=== PATIENT | female | born 1990 | race Caucasian/White ===

== ENCOUNTER 2017-04-18 13:18 | Emergency (ER) | payer SELFPAY ==
[2017-04-18 13:24] VITALS: BMI 38.3
[2017-04-18 13:26] VITALS: BP 134/75
--- NOTE | 2017-04-18 13:36 | DR.GENAD ---
HPI - PCP Primary Care Physician: ANA ALMANZAR - Complaint/Symptoms Chief Complaint Doctors Comments: Patient injured her left foot while jumping from an elevaton of 4-5 feet seven days ago. She went to the ED x-ray showed no fracture. She was advised hto get another x ray once the swelling went down. She was put in ankle stirrups, she had a boot, not using anymore. She ambulate with pain today. Chief Complaint:: PT C/O ON SUNDAY JUMPING OVER A STEP AND FALLINGNG ON THE GROUND AND HITTING HER LEFT ANKLE ,, BRUISES PURPLE IN COLOR NOTED AND A LARGE AMOUNT OF EDEMA.. PT HAS CRUTCHES - Source History Provided: Patient - Mode of Arrival Mode of Arrival: Ambulatory - Timing Onset of Chief Complaint: 04/17/17 PMH - PMH Past Medical History: No Past Surgical History: Yes Surgical History: Past Surgical History Comment: C-SECTIONS TIMES 2 - Family History History of Family Medical Conditions: No Family Medical History: Hypertension - Social History Does patient currently use any type of tobacco product: Yes Have you used tobacco products in the last 12 months: Yes Type of Tobacco Use: Cigarettes How many years tobacco product used: 8 Does any household member use tobacco: No Alcohol Use: None Do you use any recreational Drugs:: No Lives With: Family - infectious screening In the last 2 months have you had wt loss of >10#?: NO Have you had fever, night sweats or hemotysis?: No Have you traveled outside the country in the last 6 months?: No Isolation: Standard ROS - Review of Systems Eyes: No Symptoms Reported ENTM: No Symptoms Reported Respiratoy: No Symptoms Reported Cardiovascular: No Symptoms Reported Gastrointestinal/Abdominal: No Symptoms Reported Genitourinary: No Symptoms Reported Neurological: No Symptoms Reported Musculoskeletal: Foot (left swollen) Integumentary: No Symptoms Reported Hematologic/Lymphatic: No Symptoms Reported Endocrine: No Symptoms Reported Psychiatric: No Symptoms Reported All Other Systems: Reviewed and Negative PE - Vital Signs Vitals: Temperature 98.6 F Pulse Rate 95 Respiratory Rate 16 Blood Pressure [Right Arm] 128/56 Blood Pressure [Left Arm] 132/79 Blood Pressure 134/75 O2 Sat by Pulse Oximetry 97 - General Limitations: No Limitations General Appearance: Alert, In No Apparent Distress - Head Head Exam: Normal Inspection, Atraumatic - Eyes Eye exam: Normal Appearance, PERRL, EOMI - ENT ENT Exam: Normal Exam External Ear Exam: Normal External Inspection TM/Canal Exam: Bilateral Normal Nose Exam: Normal Nose Exam, Sinus Tenderness Mouth Exam: Normal Inspection Throat Exam: Normal Inspection - Neck Neck Exam: Normal Inspection - Chest Chest Inspection: Normal Inspection, Symmetric Chest Wall Rise - Respiratory Respiratory Exam: Normal Lung Sounds Bilat Respiratory Exam: Bilateral Clear to Auscultation - Cardiovascular Cardiovascular Exam: Regular Rate, Normal Rhythm - Abdominal Exam Abdominal Exam: Normal Inspection, Normal Bowel Sounds Abdominal Tenderness: negative: RUQ, RLQ, LUQ, LLQ, Epigastrium, Suprapubic, Diffuse, Mild, Moderate, Severe, Other - Extremities Extremities Exam: Normal Inspection, Edema (left foot), Joint Swelling (left ankle) - Back Back Exam: Normal Inspection - Neurologic Neurological Exam: Alert, Oriented X3, CN II-XII Intact - Psychiatric Psychiatric Exam: Normal Affect - Skin Skin Exam: Warm, Dry, Intact Course - Reevaluation 1st: Improved ROR - Labs Reviewed Laboratory: HCG, Qual Negative <10 mIU/mL 04/18/17 13:38 - XRAY XRAY Interpreted by: Radiologist (Left Foot: There is no definite fracture or dislocation or joint space abnormality identified. There is diffuse soft tissue swelling. There is suggestion of slight widening of the calcaneocuboid joint. This may be related to radiographic projection ratherr than injury. Impression: Soft tissue swelling. No definitie fracture) - Diagnosis Discharge Problem: Soft tissue swelling - Discharge Plan Condition: Stable - Follow ups/Referrals Follow ups/Referrals: SESAR PEREZ [Primary Care Provider] - 3 days - Instructions
[2017-04-18] MEDS ORDERED: TORADOL 60 MG VIAL IM ONE (13:39)
[2017-04-18] MEDS ORDERED: TORADOL 60 MG VIAL ONE (13:43)
[2017-04-18 13:59] LABS: SERUM PREGNANCY TEST, QUAL NEGATIVE <10 mIU/mL
--- NOTE | 2017-04-18 14:20 | RAD ---
Examination: Left foot, three views History: Trauma Findings: There is no definite fracture or dislocation or joint space abnormality identified. There i s diffuse soft tissue swelling. There is suggestion of slight widening of the calcaneocuboid joint. T his may be related to radiographic projection rather than injury. Impression: Soft tissue swelling. No definite fracture. Correlate clinically for focal trauma to the calcaneocuboid joint, see above. Reported By:
== END 2017-04-18 14:35 | disposition home or self-care (01) ==
LOC: ER 13:30
DX: M79.89 Other specified soft tissue disorders (principal); W10.9XXA Fall (on) (from) unspecified stairs and steps, initial encounter
CPT/HCPCS: 36415; 73630; 84703; 96372; 99282; 99283; J1885

== ENCOUNTER 2018-02-27 06:07 | Inpatient (IN) ==
[2018-02-27] MEDS ORDERED: LR 1000 ML IV 1,000 ML IV ONE ×2 (06:32→07:02)
[2018-02-27] MEDS ORDERED: ANCEF 1 GRAM IV PREMIX* 1 G/50 ML BAG IV ONE (06:32)
[2018-02-27] MEDS ORDERED: D5 1/2 NS 1000 ML 1,000 ML IV SCH (06:43)
[2018-02-27] MEDS ORDERED: ANCEF VIAL 1 GRAM IVP ONE (06:43)
[2018-02-27] MEDS ORDERED: DURAMORPH ONE (07:03)
[2018-02-27] MEDS ORDERED: MARCAINE SPINAL ONE (07:03)
[2018-02-27] MEDS ORDERED: D5 1/2 NS 1L W PITOCIN 20 UNITS/L 20 UNITS/1,000 ML BAG IV ONE (07:03)
[2018-02-27] MEDS ORDERED: XYLOCAINE-MPF 1% ONE (07:03)
[2018-02-27 07:52] LABS: BILIRUBIN,URINE NEGATIVE (NEGATIVE); BLOOD/HEMOGLOBIN,URINE NEGATIVE (NEGATIVE); GLUCOSE, URINE NEGATIVE (NEGATIVE); KETONES,URINE NEGATIVE (NEGATIVE); LEUKOCYTE ESTERASE ,URINE 1+ (NEGATIVE); NITRITES,URINE NEGATIVE (NEGATIVE); PH,URINE 6.5 (5.0 - 8.0); PROTEIN,URINE 1+ (NEGATIVE); UROBILINOGEN,URINE NORMAL (NORMAL)
[2018-02-27 07:59] LABS: APPEARANCE,URINE CLEAR (CLEAR); COLOR,URINE YELLOW (YELLOW)
[2018-02-27 08:00] LABS: BACTERIA,URINE TRACE /HPF (NEGATIVE); MUCUS,URINE FEW /HPF (NEGATIVE); RBC,URINE 0-2 /HPF (NONE SEEN); SQUAMOUS EPITHELIAL CELL,UR MODERATE /HPF (NEGATIVE)
[2018-02-27] MEDS ORDERED: BENADRYL INJ 50 MG VIAL IVP PRN ×2 (08:48→09:08)
[2018-02-27] MEDS ORDERED: PHENERGAN INJ 25 MG IVP PRN (08:48)
[2018-02-27] MEDS ORDERED: ZOFRAN INJ 4 MG VIAL IVP PRN ×2 (08:48→09:08)
[2018-02-27] MEDS ORDERED: REGLAN INJ 10 MG VIAL IVP PRN ×2 (08:48→09:08)
[2018-02-27] MEDS ORDERED: HYPERRHO S/D (or RHOGAM) IM PRN (09:08)
[2018-02-27] MEDS ORDERED: NARCAN INJ IVP PRN (09:08)
[2018-02-27] MEDS ORDERED: D5 1/2 NS 1000 ML 1,000 ML with PITOCIN 20 UNITS IV SCH ×2 (09:08)
[2018-02-27] MEDS ORDERED: ADACEL or BOOSTRIX TDaP VACCINE IM ONE (09:08)
[2018-02-27] MEDS ORDERED: MYLICON TAB 80 MG CHEW PO PRN (09:08)
[2018-02-27] MEDS ORDERED: PERCOCET TAB 5/325 MG PO PRN (09:08)
[2018-02-27] MEDS: ZANTAC PO SCH ×2 (10:52→21:18)
[2018-02-27] MEDS: PRENATAL PLUS PO SCH (10:54)
[2018-02-27] MEDS: TORADOL 30 MG VIAL IVP PRN (12:37)
[2018-02-27] MEDS ORDERED: DIPRIVAN VIAL ONE ×2 (14:47→15:33)
[2018-02-27] MEDS ORDERED: PITOCIN ONE ×2 (14:47→15:33)
[2018-02-27] MEDS ORDERED: ZOFRAN INJ 4 MG VIAL ONE ×2 (14:47→15:33)
[2018-02-28 05:05] LABS: HEMATOCRIT 30.1 % (36.0-47.0); HEMOGLOBIN 10.2 g/dL (12.0-16.0)
[2018-02-28] MEDS: TORADOL 30 MG VIAL IVP PRN (06:18)
[2018-02-28] MEDS: COLACE CAP 100 MG PO SCH ×2 (08:34→20:38)
[2018-02-28] MEDS: PRENATAL PLUS PO SCH (08:34)
[2018-02-28] MEDS: ZANTAC PO SCH ×2 (08:34→20:38)
[2018-02-28] MEDS: MOTRIN TAB 800 MG PO PRN ×2 (12:20→20:37)
[2018-02-28] MEDS: BACTROBAN CREAM TOP SCH ×2 (14:02→22:38)
[2018-02-28] MEDS: PERCOCET TAB 5/325 MG PO PRN ×2 (16:00→23:38)
[2018-03-01] MEDS: BACTROBAN CREAM TOP SCH (06:06)
[2018-03-01] MEDS: MOTRIN TAB 800 MG PO PRN (06:27)
[2018-03-01 07:49] VITALS: BP 134/60
[2018-03-01] MEDS: PERCOCET TAB 5/325 MG PO PRN (10:30)
== END 2018-03-01 11:20 | disposition home or self-care (01) | DRG 787 ==
LOC: LD 06:07 → MED/SURG 09:21
PROVIDERS: ADMIT Specialist; ATTEND Specialist
DX: Z37.0 Single live birth; Z3A.39 39 weeks gestation of pregnancy; Z23 Encounter for immunization; N85.8 Other specified noninflammatory disorders of uterus; O36.0930 Maternal care for other rhesus isoimmunization, third trimester, not applicable or unspecified; O34.211 Maternal care for low transverse scar from previous cesarean delivery
CPT/HCPCS: 36415; 80048; 81001; 85014; 85018; 85025; 85610; 85730; 86592; 86850; 86900; 86901; 87086; A4222; S0197; J0690; J1200; J1885; J2310; J2405; J2590; J2704; J3490; J7120